=== PATIENT | female | born 1945 | race Hispanic/Latino ===

== ENCOUNTER 2018-07-23 09:11 | Day surgery (SDC) | payer MEDICARE ==
[2018-07-23 09:45] VITALS: BMI 32.5
[2018-07-23] MEDS ORDERED: Lidocaine 1% Inj (20ml) ONE (11:19)
[2018-07-23] MEDS ORDERED: Etomidate 20 mg/10ml Inj IV ONE (11:20)
[2018-07-23] MEDS ORDERED: Propofol 10 mg/ml Inj (20 ML) ONE ×3 (11:20→11:50)
[2018-07-23] MEDS ORDERED: Sodium Chloride 0.9% 1,000 ML IV SCH (12:15)
[2018-07-23 17:34] VITALS: BP 148/74; PULSE 67; RESP 17; TEMP 98; O2SAT 96
== END 2018-07-23 13:43 | disposition home or self-care (01) ==
LOC: ENDO 09:11
PROVIDERS: ATTEND Internal Medicine Gastroenterology
DX: Z12.11 Encounter for screening for malignant neoplasm of colon (principal); D12.4 Benign neoplasm of descending colon; K63.5 Polyp of colon; K64.1 Second degree hemorrhoids; K29.70 Gastritis, unspecified, without bleeding; K21.9 Gastro-esophageal reflux disease without esophagitis
CPT/HCPCS: 43239; 45380; 88305; 88342; J2704; J7030; J7040